=== PATIENT | male | born 1960 | race Caucasian/White ===

== ENCOUNTER 2022-07-16 04:03 | Day surgery (SDC) | payer OTHER ==
[2022-07-12 11:08] VITALS: BMI 36.8
[2022-07-16] MEDS ORDERED: GENTAMICIN 80 MG PREMIXED IVPB 80 MG/100 ML BAG IVPB ONE (10:45)
[2022-07-16] MEDS ORDERED: VANCOMYCIN/WATER FOR INJ (PEG) 1,000 MG/200 ML BAG IVPB ONE ×2 (10:45→11:38)
[2022-07-16] MEDS ORDERED: VANCOMYCIN 1,000 MG VIAL (RESTRICTED TO ID ONLY) ONE ×2 (10:46→12:45)
[2022-07-16] MEDS ORDERED: LIDOCAINE HCL 2% (20ML MULTI-DOSE VIAL) ONE (10:46)
[2022-07-16] MEDS ORDERED: GENTAMICIN SO4 80 MG/2 ML VIAL ONE ×3 (10:46→13:16)
[2022-07-16] MEDS ORDERED: SUCCINYLCHOLINE CHLORIDE 200 MG/10 ML SYRINGE ONE (13:35)
[2022-07-16] MEDS ORDERED: PROPOFOL 40 ML ONE (13:35)
[2022-07-16] MEDS ORDERED: MIDAZOLAM HCL 2 MG/2 ML SINGLE DOSE VIAL ONE (13:36)
[2022-07-16] MEDS ORDERED: ceFAZolin SODIUM 1 GM VIAL IVPB ONE (14:20)
[2022-07-16] MEDS ORDERED: LIDOCAINE HCL 2% (50ML VIAL) INF ONE (14:33)
[2022-07-16] MEDS ORDERED: GLYCOPYRROLATE 0.2 MG/1 ML VIAL ONE (15:17)
[2022-07-16] MEDS ORDERED: NEOSTIGMINE METHYLSULFATE 0.5 MG/1 ML - 10 ML MDV ONE (15:18)
[2022-07-16] MEDS ORDERED: LACTATED RINGERS SOLUTION 1,000 ML IV SCH (16:15)
[2022-07-16] MEDS ORDERED: oxyCODONE HCL 5 MG TABLET PO PRN (16:15)
[2022-07-16] MEDS ORDERED: ACETAMINOPHEN 1000 MG/100 ML BAG IVPB ONE (16:15)
[2022-07-16] MEDS ORDERED: ONDANSETRON 4 MG/2 ML VIAL IVPUSH PRN (16:15)
[2022-07-16] MEDS ORDERED: ACETAMINOPHEN INJECTION 100 ML IVPB ONE (16:33)
[2022-07-16] MEDS ORDERED: oxyCODONE HCL 5 MG TABLET ONE (18:49)
[2022-07-16] MEDS ORDERED: oxyCODONE HCL 5 MG TABLET PO ONE (18:53)
[2022-07-16 18:57] VITALS: TEMP 98
[2022-07-16 20:05] VITALS: BP 138/70; PULSE 93; RESP 16
== END 2022-07-16 20:02 | disposition home or self-care (01) ==
LOC: JASU-SURG 04:03
PROVIDERS: ATTEND Urology
PROC: 0VUS0JZ Supplement Penis with Synthetic Substitute, Open Approach (ICD-10-PCS; principal; 2022-07-16 13:30)
DX: N52.31 Erectile dysfunction following radical prostatectomy (principal)
CPT/HCPCS: 54401; C1813; 94760